=== PATIENT | female | born 2000 | race Caucasian/White ===

== ENCOUNTER → 2021-11-19 12:57 | Outpatient (BNVA) | payer OTHER, SELFPAY | PROVIDERS: PCP Pediatrics; Referring Provider Pediatrics; Visit Provider Student in an Organized Health Care Education/Training Program | DX: M79.661 Pain in right lower leg (principal); M79.662 Pain in left lower leg; M84.361S Stress fracture, right tibia, sequela; M84.362S Stress fracture, left tibia, sequela | CPT/HCPCS: 99213 ==

== ENCOUNTER 2024-03-19 11:01 | Emergency (ER) | payer MEDICAID, SELFPAY ==
[2024-03-19 11:11] VITALS: BP 104/72; PULSE 87; RESP 12; TEMP 36.4; O2SAT 97
--- NOTE | 2024-03-19 11:30 | ED.GENADUL_ITS ---
Discharge Plan Disposition Patient Disposition: Home Condition: Stable Discharge Details Clinical Impression: Corneal irritation of right eye Primary Care Provider: Ismael Chung ED Provider: Day Morgan Home Meds and New Rx's Prescriptions: No Action No Known Home Meds Discharge Instructions Instructions: How to Use Eye Drops and Eye Ointment ED Additional Instructions: No evidence for corneal abrasion or foreign body today in the eye. Please use the eye ointment as directed 3 times a day while awake for the next 3 to 5 days. If persistent irritation please follow-up with your normal eye doctor. Please take Tylenol or Ibuprofen with food every 4-6 hours as needed for pain and swelling. Follow up with primary care provider in 3-5 days. Return to ED sooner if any worsening or concerns. Referrals: [facility] [Outside] - 3 days Ismael Chung [Primary Care Provider] - 3 days Discharge Data Discharge Date/Time-TO BE ENTERED AT DEPARTURE: 03/19/24 11:51 HPI General Mode of arrival: ambulatory . Date/Time Provider Initiated Documentation: 03/19/24 11:14 . Limitations to Documentation: no limitations . Information obtained by: patient, RN notes reviewed and old records reviewed . HPI Narrative: 23-year-old female presents to the ER with a chief complaint of foreign body sensation and irritation to her right eye which began yesterday after taking out a contact lens. She reports that she tried to rinse it out with little to no relief. Increase steering. No purulent discharge noted. No other associated symptoms or concerns. Related Data Home Medications ?Medication ?Instructions ?Recorded ?Confirmed Unknown [No Known Home Meds] 10/08/21 03/19/24 Allergies Allergy/AdvReac Type Severity Reaction Status Date / Time Latex, Natural Rubber AdvReac Mild rash Verified 03/19/24 11:16 General Stated Complaint: EyeProblem SUJATHA: 4 Review of Systems All systems reviewed & are unremarkable except as noted in HPI and below Eyes Eyes: Reports as per HPI and Reports irritation Exam Eyes General: appearance normal, both eyes and all related structures Visual Mcdonnell: normal visual mcdonnell by confrontation Alignment and Position: alignment normal Periorbital: periorbital findings normal Eyelids: eyelids normal Conjunctivae: conjunctival abnormality right conjunctival injection diffuse Sclera: sclerae normal Cornea: corneas normal and fluorescein used Pupils: PERRL EOM: EOM intact bilaterally Direct ophthalmoscopy: normal light reflex Course Vital Signs Vital signs: Vital Signs Temperature 36.4 C 03/19/24 11:11 Pulse 87 03/19/24 11:11 Respiratory Rate 12 03/19/24 11:11 Blood Pressure 104/72 03/19/24 11:11 Pulse Oximetry 97 03/19/24 11:11 Temperature 36.4 C 03/19/24 11:11 Temperature Source Oral 03/19/24 11:11 Pulse 87 03/19/24 11:11 Respiratory Rate 12 03/19/24 11:11 Respiratory Effort Normal, Non-Labored 03/19/24 11:13 Blood Pressure 104/72 03/19/24 11:11 Blood Pressure Position Sitting 03/19/24 11:11 Pulse Oximetry 97 03/19/24 11:11 Oxygen Delivery Method Room Air 03/19/24 11:11 Oxygen Flow Rate 0 03/19/24 11:11 Pain Level 5 03/19/24 11:11 Medical Decision Making 24-year-old female presents to the ER with a chief complaint of foreign body sensation and irritation to her right eye which began yesterday after taking out a contact lens. She reports that she tried to rinse it out with little to no relief. Increase steering. No purulent discharge noted. No other associated symptoms or concerns. No evidence of corneal abrasion, no uptake and dye no foreign body visualized on the Hurst lamp exam. Will give erythromycin ointment and have patient follow-up in 3 days if no better. Patient verbalized understanding. This text was generated using [employer] dictation system, please disregard any oddities of phrase or misspellings. Quality:SDOH Health Related Social Needs: No Data to Display PFSH All Active Problems (Updated 03/19/24 @ 11:32 by Day Morgan NP) Corneal irritation of right eye (Acute) Stress fracture, left tibia, sequela (Acute) Stress fracture, right tibia, sequela (Acute) Femoroacetabular impingement of left hip (Acute) Stress fracture, right tibia, initial encounter for fracture (Acute) Stress fracture, left tibia, initial encounter for fracture (Acute) Social History Smoking/Tobacco Use Status: Never Smoking risk assessment performed?: Yes Alcohol Intake: never Drug use: Never Substance use type: does not use Housing: house Current gender identity: female
[2024-03-19 11:49] VITALS: BP 104/72; PULSE 87; RESP 12; TEMP 36.4; O2SAT 97
[2024-03-19] MEDS: Balanced Salt Solution 15 ML BTL OP (11:49)
[2024-03-19] MEDS: Erythromycin Ophth Oint 3.5 GM TUBE OD (11:49)
== END 2024-03-19 11:51 | disposition home or self-care (01) ==
LOC: ER 11:55
PROVIDERS: Emergency Provider Registered Nurse Emergency; PCP Pediatrics
DX: H57.8A1 Foreign body sensation, right eye (principal)
CPT/HCPCS: 99283

== ENCOUNTER 2024-05-08 22:11 | Emergency (ER) | payer MEDICAID, SELFPAY ==
[2024-05-08 22:14] VITALS: BP 130/68; PULSE 68; RESP 16; TEMP 36.6; O2SAT 100
--- NOTE | 2024-05-08 22:23 | W.ED.GENAD ---
Discharge Plan Disposition Patient Disposition: Home Condition: Good Discharge Details Clinical Impression: Diarrhea, Abdominal pain Primary Care Provider: Ismael Chung ED Provider: Cam Dawn Home Meds and New Rx's Prescriptions: No Action No Known Home Meds Discharge Instructions Instructions: Abdominal Pain, Adult ED, Diarrhea, Adult ED Additional Instructions: At this time your laboratory workup is returned very reassuring. Your electrolytes are normal, your renal function and pancreas function is normal. There is no evidence of infection in your urine or other significant abnormalities. Your CAT scan is reassuring, with no signs of life-threatening etiology. Please take Tylenol and Motrin as needed for pain. Please return with a stool samples for further testing if your diarrhea continues. If you notice any worsening of your symptoms, or any new symptoms such as vomiting, diarrhea, fever, chills, shortness of breath, chest pain, numbness, weakness, or fainting , please return immediately to the emergency department for reevaluation. Please follow up with your primary care provider as soon as possible for reassessment and reevaluation. As always, it was a pleasure participating in your medical care today. Stand Alone Forms: Work Release Referrals: Ismael Chung [Primary Care Provider] - [facility] General Date/Time Provider Initiated Documentation: 05/08/24 22:12. HPI Narrative: 24-year-old female with a past medical history of 2 vaginal deliveries, who is currently 3 months who did have a tubal ligation at that time, presents today for abdominal pain. Patient states that 1 week ago she developed mild back achiness which she thought was from lifting up her child frequently. Over the next day or 2 it transition to abdominal cramps which felt like a normal menstrual period, and then this transitioned over the last 2 days to diarrhea which is described as slightly loose, no blood. She has also had development of right upper quadrant epigastric discomfort which she describes as achy. She denies any vomiting but does admit to nausea. She denies any fever or chills. No burning with urination. No chest pain or shortness of breath. No other prior abdominal surgeries. She denies any recent foreign travel, antibiotic use, or drinking from streams or burr. No other sick contacts, no boil water notices for where she lives. No other complaints at this time. Pain is made worse in her abdomen with walking and moving. It is improved by nothing. She did take Midol, and Imodium without significant improvement. No other complaints at this time. Related Data Home Medications ?Medication ?Instructions ?Recorded ?Confirmed Unknown [No Known Home Meds] 10/08/21 05/08/24 Allergies Allergy/AdvReac Type Severity Reaction Status Date / Time Latex, Natural Rubber AdvReac Mild rash Verified 05/08/24 22:30 General Stated Complaint: Abd Prob SUJATHA: 3 Review of Systems All systems reviewed & are unremarkable except as noted in HPI and below Exam Narrative Exam Narrative: 1.Const: Well-nourished, Well-developed, appearing stated age 2.Eyes: PERRL, no conjunctival injection, and symmetrical lids. 3.ENT: Atraumatic external nose and ears. Dry MM. Neck: Symmetric, trachea midline, No thyromegaly. 4.CVS: +S1/S2, Peripheral pulses 2+ and equal in all extremities. Brisk capillary refill in all extremities. 5.RESP: Unlabored respiratory effort. Clear to auscultation bilaterally. No wheezes rales or rhonchi 6.GI: Soft, nondistended. Mild tenderness in the right upper quadrant, negative Blackman sign. Minimal left upper quadrant tenderness. No guarding or rebound. No pain to McBurney's point, mild achiness on palpation of the lower abdomen, but no guarding or rebound otherwise. 7.MSK: Normocephalic/Atraumatic, Extremities w/o deformity or ttp No cyanosis or clubbing, Normal movement of all extremities 8.Skin: Warm, Dry. No rashes or lesions. 9.Neuro: artificial stone applicator II-XII grossly intact. Sensation grossly intact, no focal neurologic deficits. 10.Psych: (AAO) x3. Appropriate mood and affect Course Vital Signs Vital signs: Vital Signs Temperature 36.6 C 05/08/24 22:14 Pulse 68 05/08/24 22:14 Respiratory Rate 16 05/08/24 22:14 Blood Pressure 130/68 05/08/24 22:14 Pulse Oximetry 100 05/08/24 22:14 Temperature 36.6 C 05/08/24 22:14 Temperature Source Temporal Artery Scan 05/08/24 22:14 Pulse 68 05/08/24 22:14 Respiratory Rate 16 05/08/24 22:14 Blood Pressure 130/68 05/08/24 22:14 Pulse Oximetry 100 05/08/24 22:14 Oxygen Delivery Method Room Air 05/08/24 22:14 Oxygen Flow Rate 0 05/08/24 22:14 Pain Level 7 05/08/24 22:14 Medical Decision Making 24-year-old female with a past medical history of 2 vaginal deliveries, who is currently 3 months who did have a tubal ligation at that time, presents today for abdominal pain. Patient states that 1 week ago she developed mild back achiness which she thought was from lifting up her child frequently. Over the next day or 2 it transition to abdominal cramps which felt like a normal menstrual period, and then this transitioned over the last 2 days to diarrhea which is described as slightly loose, no blood. She has also had development of right upper quadrant epigastric discomfort which she describes as achy. She denies any vomiting but does admit to nausea. She denies any fever or chills. No burning with urination. No chest pain or shortness of breath. No other prior abdominal surgeries. She denies any recent foreign travel, antibiotic use, or drinking from streams or burr. No other sick contacts, no boil water notices for where she lives. No other complaints at this time. Pain is made worse in her abdomen with walking and moving. It is improved by nothing. She did take Midol, and Imodium without significant improvement. No other complaints at this time. Exam demonstrates mild tenderness in the right upper quadrant, and achiness throughout. No guarding or rebound. Symptoms appear inconsistent with an acute surgical abdomen. Differential does include cholecystitis, cholelithiasis, less likely pancreatitis. Urolithiasis or UTI certainly on the differential as well. Less likely is postoperative complication from surgeries. Diarrhea may be infectious, particularly viral. Enteritis may be on the differential, however C. difficile and infectious etiology is certainly less likely given her lack of concerning red flags in history. That being said we will check for these infectious components. We will monitor closely and reassess, get a CT scan of the abdomen for further assessment, perform laboratory workup. Will hold on IV fluids as she has no tachycardia or shock. However we will encourage oral fluids. We remain in current lockdown for IV fluid use secondary to national shortage. No indication for emergent fluid resuscitation through the IV at this time though. 11:45 PM Laboratory workup has returned notably unremarkable, no white count, bandemia, left shift. Electrolytes normal, lipase normal, urinalysis shows no evidence of infection or blood. On reassessment patient states that she feels notably improved. Symptoms inconsistent with pancreatitis or colitis. CT scan shows evidence of nonspecific gastro mural thickening, mildly thickened anterior bladder wall, but no evidence of UTI. There is a complex left adnexal cyst, no additional acute process otherwise. There is a subcentimeter hypodensity in the liver, I did discuss this with the patient at all. Symptoms and clinical history inconsistent with metastases or metastatic process. Patient has not had any more bowel movements here, and so we have not been able to do perform testing on stool studies. Will give stool lab order form for her for home use if she does have a return of her diarrhea. Otherwise patient looks well. Repeat exam shows no evidence of acute life-threatening surgical abdominal process. Patient stable for discharge. Suspect mild gastroenteritis, mild gastritis, recommend continued fluids at home, Tylenol as needed, and close follow-up with PCP. Discussed red flags which to return. I have extensively reviewed the treatment plan and discharge instructions with the patient. I have addressed all patient concerns at this time. The patient was made aware of what symptoms to monitor for that would warrant a return to the emergency department. Discussed the plan with the patient, they demonstrate verbal understanding and agreement with our assessment and plan at this time. The documentation in this chart was dictated using [employer] dictation software. Please excuse any dictation errors. FINDINGS: Lungs: Lung bases are clear. Liver: Subcentimeter hypodensity in the caudate lobe is too small to characterize but likely benign in the absence of known malignancy, correlate clinically. Liver is not enlarged. Gallbladder and biliary ducts: Unremarkable. No calcified stones. No ductal dilation. Pancreas: Unremarkable. No ductal dilation. Spleen: Unremarkable. No splenomegaly. Adrenal glands: Normal. No mass. Kidneys and ureters: Symmetric renal enhancement without mass. No hydronephrosis. Ureters are normal in course and caliber. Stomach and bowel: Stomach decompressed with mild nonspecific gastric mural thickening. No evidence of bowel obstruction. No definite focal bowel wall thickening allowing for degree of bowel distension. Appendix: Within normal limits. Intraperitoneal space: Trace free fluid in the pelvic cul-de-sac is likely physiologic. No free air. Vasculature: No abdominal aortic aneurysm or evidence of dissection Lymph nodes: No pathologically enlarged lymph nodes. Urinary bladder: There is mild thickening of the anterior bladder wall measuring 5-6 mm (sagittal series 6, image 36). Reproductive: Complex, crenulated appearing peripherally enhancing 1.8 cm x 1.0 cm x 2.1 cm left adnexal cyst. Otherwise unremarkable as visualized. Bones/joints: Unremarkable. No acute fracture. Soft tissues: Trace fat containing umbilical hernia. IMPRESSION: 1. Mild nonspecific gastric mural thickening may be related to changes of incomplete distension versus acute gastritis. Correlate with history/symptoms. 2. Mild thickening of the anterior bladder wall. Recommend correlation with urinalysis. 3. Complex 2.1 cm left adnexal cyst. CT appearance most consistent with corpus luteum. 4. Additional nonacute findings as discussed. Thank you for allowing us to participate in the care of your patient. Dictated and Authenticated by: Vivek Santa MD 05/09/2024 12:03 AM Eastern Time ([place] & [place]) Quality:SDOH Health Related Social Needs: No Data to Display PFSH All Active Problems (Updated 05/09/24 @ 00:15 by Cam Dawn DO) Abdominal pain (Acute) Diarrhea (Acute) Stress fracture, left tibia, sequela (Acute) Stress fracture, right tibia, sequela (Acute) Femoroacetabular impingement of left hip (Acute) Stress fracture, right tibia, initial encounter for fracture (Acute) Stress fracture, left tibia, initial encounter for fracture (Acute) Social History Smoking/Tobacco Use Status: Never Smoking risk assessment performed?: Yes Alcohol Intake: never Drug use: Never Substance use type: does not use Housing: house Current gender identity: female
[2024-05-08] MEDS: Ondansetron 4 MG/2 ML VIAL IVP (22:31)
[2024-05-08] MEDS: Acetaminophen 500 MG TAB 1000 MG PO (22:31)
[2024-05-08] MEDS: Ketorolac 15 MG/ML VIAL IVP (22:31)
[2024-05-08 22:33] LABS: Abs Immature Grans 0.03 10^3/uL (0.0-0.06); Absolute Basophil Count 0.04 10^3/uL (0.0-0.2); Absolute Eosinophil Count 0.27 10^3/uL (0.0-0.7); Absolute Lymphocyte Count 2.48 10^3/uL (1.2-3.4); Absolute Monocyte Count 0.79 10^3/uL (0.1-0.8); Absolute Neutrophil Count 6.29 10^3/uL (1.2-6.7); Basophils % 0.4 %; Eosinophils % 2.7 %; HCT 38.4 % (36.0-46.0); HGB 12.1 g/dL (11.2-15.7); Immature Grans % 0.3 %; Lymphocytes % 25.1 %; MCH 26.5 pg (27.0-33.0); MCHC 31.5 % (32.0-36.0); MCV 84 fL (80-95); MPV 9.3 fL (8.0-11.0); Neutrophils % 63.5 %; Platelet Count 262 10^3/uL (130-400); RBC 4.57 10^6/uL (3.93-5.22); RDW 14.5 % (11.7-14.6); RDW-SD 44.6 fL
[2024-05-08] MEDS: Normal Saline - Diluent 50 ML VIAL IJ (22:36)
[2024-05-08] MEDS: Omnipaque 350 MG/ML 100 ML BTL 85 ML IJ (22:37)
--- NOTE | 2024-05-08 22:46 | DI.CT_ITS ---
Exam(s) CT ABDOMEN PELVIS W EXAM: CT ABDOMEN PELVIS W CLINICAL HISTORY: diarrhea, ruq abd pain, 3 months post . TECHNIQUE: Imaging Protocol: Axial computed tomography images with coronal and sagittal reformatted images were created and reviewed CONTRAST MATERIAL: Intravenous: Omnipaque-350 85cc Oral: None COMPARISON: No exams were available for comparison FINDINGS: VISUALIZED LUNG BASES: No nodules nor pleural effusions evident. ABDOMEN: LIVER: There are no focal hepatic lesions evident. No dilated intrahepatic ducts. GALLBLADDER/BILIARY: No obvious gallbladder pathology. CBD is not dilated. PANCREAS: No evidence of pancreatic mass nor dilatation of the pancreatic duct. SPLEEN: Spleen is not enlarged. No obvious intrasplenic lesions. Splenic and portal veins are paten t. ADRENALS: There are no significant adrenal masses. KIDNEYS:No cysts evident. No solid renal masses. No calculi nor hydronephrosis.. ABDOMINAL AORTA: Abdominal aorta is not enlarged. LYMPH NODES:There is no retroperitoneal nor paraaortic adenopathy. ABDOMINAL WALL: No evidence of significant anterior abdominal wall nor inguinal hernia. GI: There is no evidence of bowel obstruction, free air, nor abscess. PELVIS: GI: No evidence of appendicitis.No evidence of sigmoid diverticulitis.No obvious colitis pattern. LYMPH NODES: There is no intrapelvic nor inguinal adenopathy. REPRODUCTIVE: Uterus size age-appropriate. No concerning adnexal masses. Referring enhancing corpus luteal cyst noted in left ovary there is tiny amount of fluid in the cul-de-sac probably female phys iologic. URINARY BLADDER: Is mild thickening of the anterior wall the urinary bladder. OSSEOUS: No fractures and no significant osseous lesions. IMPRESSION: 1. Mild thickening of the anterior wall the urinary bladder. Correlation with any clinical signs of cystitis recommended. 2. No CT evidence of pyelonephritis. No obstruction of the urinary tracts. 3. Corpus luteal cyst noted in the left ovary. 4. Tiny amount of free fluid in the pelvis which is probably female physiologic. RADIATION DOSE DELIVERED: 601.21mGy.cm Total DLP DATA REPOSITORY: All CT scans at this facility are submitted to the National Radiology Data Registry (NRDR) Dose Index Registry (DIR) with the [employer] (ACR). RADIATION OPTIMIZATION: All CT scans at this facility use at least one of these dose optimization te chniques: automated exposure control; mA and/or kV adjustment per patient size (includes targeted exa ms where dose is matched to clinical indication); or iterative reconstruction.
[2024-05-08 22:48] LABS: ALT 23 U/L (14-59); AST 16 U/L (15-37); Albumin 3.6 g/dL (3.4-5.0); Alkaline Phosphatase 71 U/L (46-116); Anion Gap 8.5 mmol/L (3-11); BUN 13 mg/dL (7-18); Bilirubin, Total 0.25 mg/dL (0.2-1.0); CO2 26.5 mmol/L (21.0-32.0); CREATININE 0.9 mg/dL (0.55-1.02); Chloride 106 mmol/L (98-107); Estimated GFR 92.12 (mL/min/1.73m2); Glucose 104 mg/dL (74-106); Lipase 48 U/L (16-77); Potassium 3.5 mmol/L (3.5-5.1); Sodium 141 mmol/L (136-145); Total Protein 7.8 g/dL (6.4-8.2)
[2024-05-08 22:52] LABS: Calcium 8.8 mg/dL (8.5-10.1)
[2024-05-08 23:10] LABS: Bilirubin Negative (Negative); Blood Negative (Negative); Clarity Clear (Clear); Glucose Negative (Negative); Ketones Negative (Negative); Leukocyte Esterase Negative (Negative); Nitrite Negative (Negative); Urobilinogen 0.2 mg/dL (Up to 0.2); pH 6.5 (5-8)
--- NOTE | 2024-05-09 00:03 | DI.VRAD_ITS ---
PROCEDURE INFORMATION: Exam: CT Abdomen And Pelvis With Contrast Exam date and time: 05/08/2024 10:35 PM Age: 24 years old Clinical indication: Other: Diarrhea, ruq abd pain, 3 months post TECHNIQUE: Imaging protocol: Computed tomography of the abdomen and pelvis with contrast. Contrast material: OMNIPAQUE 350; Contrast volume: 85 ml; Contrast route: INTRAVENOUS (IV); COMPARISON: No relevant prior studies available. FINDINGS: Lungs: Lung bases are clear. Liver: Subcentimeter hypodensity in the caudate lobe is too small to characterize but likely benign in the absence of known malignancy, correlate clinically. Liver is not enlarged. Gallbladder and biliary ducts: Unremarkable. No calcified stones. No ductal dilation. Pancreas: Unremarkable. No ductal dilation. Spleen: Unremarkable. No splenomegaly. Adrenal glands: Normal. No mass. Kidneys and ureters: Symmetric renal enhancement without mass. No hydronephrosis. Ureters are normal in course and caliber. Stomach and bowel: Stomach decompressed with mild nonspecific gastric mural thickening. No evidence of bowel obstruction. No definite focal bowel wall thickening allowing for degree of bowel distension. Appendix: Within normal limits. Intraperitoneal space: Trace free fluid in the pelvic cul-de-sac is likely physiologic. No free air. Vasculature: No abdominal aortic aneurysm or evidence of dissection. Lymph nodes: No pathologically enlarged lymph nodes. Urinary bladder: There is mild thickening of the anterior bladder wall measuring 5-6 mm (sagittal series 6, image 36). Reproductive: Complex, crenulated appearing peripherally enhancing 1.8 cm x 1.0 cm x 2.1 cm left adnexal cyst. Otherwise unremarkable as visualized. Bones/joints: Unremarkable. No acute fracture. Soft tissues: Trace fat containing umbilical hernia. IMPRESSION: 1. Mild nonspecific gastric mural thickening may be related to changes of incomplete distension versus acute gastritis. Correlate with history/symptoms. 2. Mild thickening of the anterior bladder wall. Recommend correlation with urinalysis. 3. Complex 2.1 cm left adnexal cyst. CT appearance most consistent with corpus luteum. 4. Additional nonacute findings as discussed. Dictated and Authenticated by: Vivek Santa MD. Ordering:ANTOINETTE Levy MD
[2024-05-09 00:54] VITALS: BP 112/75; PULSE 52; RESP 16; O2SAT 99
== END 2024-05-09 00:54 | disposition home or self-care (01) ==
PROVIDERS: Emergency Provider Student in an Organized Health Care Education/Training Program; PCP Pediatrics
DX: R19.7 Diarrhea, unspecified; M54.50 Low back pain, unspecified; R10.11 Right upper quadrant pain; R11.0 Nausea
CPT/HCPCS: 36415; 80053; 81025; 83690; 96374; 96375; 99285; 74177; 81003; 85025; 99283; J1885; J2405; J3490

== ENCOUNTER 2024-05-11 02:47 | Emergency (ER) | payer MEDICAID, SELFPAY ==
[2024-05-11 02:55] VITALS: BP 133/88; PULSE 68; RESP 16; TEMP 36.6; O2SAT 99
--- NOTE | 2024-05-11 03:51 | ED.GENADUL_ITS ---
Discharge Plan Disposition Patient Disposition: Home Condition: Good Discharge Details Clinical Impression: Abdominal cramping Primary Care Provider: Ismael Chung ED Provider: Iza Bradford Home Meds and New Rx's Prescriptions: New meloxicam 7.5 mg tablet 7.5 mg PO BID PRNQty: 14 0RF Discharge Instructions Instructions: Abdominal Pain, Adult ED Additional Instructions: Take meloxicam up to every 12 hours as needed for pain/cramping. You can also take tylenol over the counter; follow the directions on the bottle. Call your primary care doctor today to schedule an appointment for within the next 72 hours to followup on your visit here. Return to the emergency department for new or worsening symptoms including fever, pain with urination, new/different/worse abdominal cramping, vomiting, heavy vaginal bleeding, or if you have any other concerns. HPI General Mode of arrival: ambulatory . Date/Time Provider Initiated Documentation: 05/11/24 03:03 . Limitations to Documentation: no limitations . Information obtained by: patient and old records reviewed (ED visit note 05/08/24) . HPI Narrative: 24yo previously healthy female presenting for diffuse abdominal cramping. Symptoms started on Wednesday, seen in this ED on Wednesday (see prior visit note for details). Pain continues today, diffuse crampy abdominal pain with assoicated nausea. No vomiting. Irregular periods since giving 3 months ago, did start menstruating today with some spotting. No heavy vaginal bleeding. No dysuria, hematuria, diarhea, constipation, bloody stool. Tried Motrin without improvement. Otherwise in her usual state of health with no fevers, chills, rash, or other concerns. Related Data Home Medications ?Medication ?Instructions ?Recorded ?Confirmed meloxicam 7.5 mg tablet 7.5 mg PO BID PRN #14 tabs 05/11/24 Previous Rx's ?Medication ?Instructions ?Recorded meloxicam 7.5 mg tablet 7.5 mg PO BID PRN #14 tabs 05/11/24 Allergies Allergy/AdvReac Type Severity Reaction Status Date / Time Latex, Natural Rubber AdvReac Mild rash Verified 05/08/24 22:30 General Stated Complaint: Abd Prob SUJATHA: 4 Review of Systems Narrative: see HPI Exam Narrative Exam Narrative: General: Alert, well appearing, well nourished, in no acute distress. Head: Normocephalic, atraumatic Neck: Trachea midline, ?Neck supple. ENT: ?MMM.? No oropharygeal lesions or exudate. Cardiac: ?RRR, no murmurs appreciated Resp: No respiratory distress. CTAB. Abd: ?Soft, non-distended, nontender : ?No suprapubic tenderness. No CVA tenderness. Extremities: ?No deformities.? No peripheral edema. Neurologic: GCS 15. ? Moves all extremities freely against gravity Course Vital Signs Vital signs: Vital Signs Temperature 36.6 C 05/11/24 02:55 Pulse 68 05/11/24 02:55 Respiratory Rate 16 05/11/24 02:55 Blood Pressure 133/88 05/11/24 02:55 Pulse Oximetry 99 05/11/24 02:55 Temperature 36.6 C 05/11/24 02:55 Pulse 68 05/11/24 02:55 Respiratory Rate 16 05/11/24 02:55 Respiratory Effort Normal 05/11/24 03:01 Blood Pressure 133/88 05/11/24 02:55 Blood Pressure Position Sitting 05/11/24 02:55 Pulse Oximetry 99 05/11/24 02:55 Oxygen Delivery Method Room Air 05/11/24 02:55 Oxygen Flow Rate 0 05/11/24 02:55 Pain Level 6 05/11/24 02:55 Medical Decision Making 24yo previously healthy female presenting for diffuse abdominal cramping. Symptoms started on Wednesday, seen in this ED on Wednesday (see prior visit note for details); at that time CBC, CMP, lipase, and UA reassuring and CT with left adenxal cyst, no other acute process. Vital signs reassuring on arrival, benign abdominal exam with no tenderness. Low suspicion for acute abdomen/surgical intraabdominal process/appendicits/bowel obstruction/ovarian torsion; would not repeat CT scan or transfer for pelvic ultrasound. Will repeat labs and UA, treat symptoms with tylenol and toradol. Offered zofran, pt declined as not currently nausated. Labs as below, CBC & CMP reassuring with no actionable abnormalities, not , UA not infected. On reassessment patient reports pain has much improved. Advised close PCP followup, prescribed short course of meloxicam. Discharged home; discharge instructions and return precautions were reviewed with patient who verbalized understanding. All questions were answered and she is in full agreement with the plan. Lab Data Lab results reviewed: Yes I reviewed the patient's lab results. Labs: Laboratory Tests Range/Units 05/11/24 05/11/24 04:10 04:14 WBC (4.4-10.8) 10^3/uL 7.01 RBC (3.93-5.22) 10^6/uL 4.41 Hgb (11.2-15.7) g/dL 11.5 Hct (36.0-46.0) % 37.4 MCV (80-95) fL 85 MCH (27.0-33.0) pg 26.1 L MCHC (32.0-36.0) % 30.7 L RDW (11.7-14.6) % 14.5 Plt Count (130-400) 10^3/uL 231 MPV (8.0-11.0) fL 9.4 Immature Gran % % 0.3 Neutrophils % % 51.9 Lymphocytes % % 33.7 Monocytes % % 8.6 Eosinophils % % 4.9 Basophils % % 0.6 Nucleated RBC % (0.0-0.3) % 0.0 Absolute Neutrophils (1.2-6.7) 10^3/uL 3.65 Absolute Lymphocytes (1.2-3.4) 10^3/uL 2.36 Absolute Monocytes (0.1-0.8) 10^3/uL 0.60 Absolute Eosinophils (0.0-0.7) 10^3/uL 0.34 Absolute Basophils (0.0-0.2) 10^3/uL 0.04 Sodium (136-145) mmol/L 142 Potassium (3.5-5.1) mmol/L 4.0 Chloride (98-107) mmol/L 108 H Carbon Dioxide (21.0-32.0) mmol/L 26.0 Anion Gap (3-11) mmol/L 8.0 BUN (7-18) mg/dL 19 H Creatinine (0.55-1.02) mg/dL 0.9 Est GFR (CKD-EPI 2020) (mL/min/1.73m2) 92.12 Glucose (74-106) mg/dL 97 Calcium (8.5-10.1) mg/dL 8.6 Total Bilirubin (0.2-1.0) mg/dL 0.23 AST (15-37) U/L 15 ALT (14-59) U/L 19 Alkaline Phosphatase (46-116) U/L 67 Total Protein (6.4-8.2) g/dL 7.2 Albumin (3.4-5.0) g/dL 3.4 Beta HCG, Quant (1-3) mIU/mL < 1 L Urine Color (Yellow) Yellow Urine Clarity (Clear) Sl Cloudy Urine pH (5-8) 6.5 Ur Specific [place] (1.005-1.025) 1.020 Urine Protein (Neg-Trace) mg/dL Negative Urine Ketones (Negative) mg/dL Negative Urine Blood (Negative) Large H Urine Nitrite (Negative) Negative Urine Bilirubin (Negative) Negative Urine Urobilinogen (Up to 0.2) mg/dL 0.2 Ur Leukocyte Esterase (Negative) Trace H Urine RBC (0-2) HPF 10-20 H Urine WBC (0-5) HPF 3-5 Ur Epithelial Cells (Negative) HPF Few Urine Crystals (Negative) HPF Negative Urine Bacteria (Negative) HPF Few Urine Casts (Negative) LPF Negative Urine Mucus (Negative) Negative Ur Culture Indicated? No Urine Glucose (Negative) mg/dL Negative Quality:SDOH Health Related Social Needs: No Data to Display PFSH All Active Problems (Updated 05/11/24 @ 05:28 by Iza Bradford MD) Abdominal cramping (Acute) Abdominal pain (Acute) Diarrhea (Acute) Stress fracture, left tibia, sequela (Acute) Stress fracture, right tibia, sequela (Acute) Femoroacetabular impingement of left hip (Acute) Stress fracture, right tibia, initial encounter for fracture (Acute) Stress fracture, left tibia, initial encounter for fracture (Acute) Social History Smoking/Tobacco Use Status: Never Smoking risk assessment performed?: Yes Alcohol Intake: never Drug use: Never Substance use type: does not use Housing: house Current gender identity: female
[2024-05-11] MEDS: Ketorolac 15 MG/ML VIAL IVP (04:16)
[2024-05-11] MEDS: ACETAMINOPHEN 1,000 MG/100 ML BAG 400 MG IVPB (04:16)
[2024-05-11 04:21] LABS: Abs Immature Grans 0.02 10^3/uL (0.0-0.06); Absolute Basophil Count 0.04 10^3/uL (0.0-0.2); Absolute Eosinophil Count 0.34 10^3/uL (0.0-0.7); Absolute Lymphocyte Count 2.36 10^3/uL (1.2-3.4); Absolute Neutrophil Count 3.65 10^3/uL (1.2-6.7); Basophils % 0.6 %; Eosinophils % 4.9 %; HCT 37.4 % (36.0-46.0); HGB 11.5 g/dL (11.2-15.7); Immature Grans % 0.3 %; Lymphocytes % 33.7 %; MCH 26.1 pg (27.0-33.0); MCHC 30.7 % (32.0-36.0); MCV 85 fL (80-95); MPV 9.4 fL (8.0-11.0); Monocytes % 8.6 %; Neutrophils % 51.9 %; Platelet Count 231 10^3/uL (130-400); RBC 4.41 10^6/uL (3.93-5.22); RDW 14.5 % (11.7-14.6); RDW-SD 45.2 fL; WBC 7.01 10^3/uL (4.4-10.8)
[2024-05-11 04:22] LABS: Bilirubin Negative (Negative); Blood Large (Negative); Glucose Negative (Negative); Ketones Negative (Negative); Leukocyte Esterase Trace (Negative); Nitrite Negative (Negative); Urobilinogen 0.2 mg/dL (Up to 0.2); pH 6.5 (5-8)
[2024-05-11 04:25] LABS: Clarity Sl Cloudy (Clear)
[2024-05-11 04:29] LABS: Bacteria Few HPF (Negative); C & S Indicated? No; Casts Negative LPF (Negative); Crystals Negative HPF (Negative); Epithelial Cells Few HPF (Negative); Mucus Negative (Negative)
[2024-05-11 04:38] LABS: ALT 19 U/L (14-59); AST 15 U/L (15-37); Albumin 3.4 g/dL (3.4-5.0); Alkaline Phosphatase 67 U/L (46-116); BUN 19 mg/dL (7-18); Bilirubin, Total 0.23 mg/dL (0.2-1.0); CREATININE 0.9 mg/dL (0.55-1.02); Calcium 8.6 mg/dL (8.5-10.1); Chloride 108 mmol/L (98-107); Estimated GFR 92.12 (mL/min/1.73m2); Glucose 97 mg/dL (74-106); Sodium 142 mmol/L (136-145); Total Protein 7.2 g/dL (6.4-8.2)
[2024-05-11 04:39] LABS: HCG Quant, Pregnancy < 1 mIU/mL (1-3)
[2024-05-11 05:39] VITALS: BP 137/70; PULSE 72; RESP 16; O2SAT 99
== END 2024-05-11 05:40 | disposition home or self-care (01) ==
PROVIDERS: Emergency Provider Student in an Organized Health Care Education/Training Program; PCP Pediatrics
DX: R11.0 Nausea; R10.9 Unspecified abdominal pain
CPT/HCPCS: 36415; 80053; 96365; 96374; 99284; 81003; 81015; 84702; 85025; 99283; J0131; J1885

== ENCOUNTER 2024-12-28 15:31 | Outpatient (REF) | payer MEDICAID, SELFPAY ==
[2024-12-28 15:43] LABS: HCT 40.5 % (36.0-46.0); HGB 12.8 g/dL (11.2-15.7); MCH 27.2 pg (27.0-33.0); MCHC 31.6 % (32.0-36.0); MCV 86 fL (80-95); MPV 11.9 fL (8.0-11.0); Platelet Count 129 10^3/uL (130-400); RDW 13.7 % (11.7-14.6); RDW-SD 42.9 fL; WBC 10.69 10^3/uL (4.4-10.8)
[2024-12-28 16:15] LABS: Absolute Lymphocyte Count 6.63 10^3/uL (1.2-3.4); Absolute Monocyte Count 1.07 10^3/uL (0.1-0.8); Absolute Neutrophil Count 2.99 10^3/uL (1.2-6.7); Atypical Lymphocytes % 4 %; Diff Comment Manual Differential; RBC Morphology Normal
[2024-12-28 17:48] LABS: Anion Gap 5.9 mmol/L (3-11); BUN 12 mg/dL (7-18); CO2 30.1 mmol/L (21.0-32.0); CREATININE 0.8 mg/dL (0.55-1.02); Calcium 8.8 mg/dL (8.5-10.1); Chloride 103 mmol/L (98-107); Estimated GFR 106.11 (mL/min/1.73m2); Glucose 92 mg/dL (74-106); Sodium 139 mmol/L (136-145)
[2024-12-29 10:03] LABS: Lyme Ab w Rflx to Lyme Confirm Negative (Negative)
== END 2024-12-28 15:32 | disposition home or self-care (01) ==
LOC: LBN 15:31
PROVIDERS: Visit Provider Physician Assistant Medical
DX: R52 Pain, unspecified (principal); R53.83 Other fatigue
CPT/HCPCS: 80048; 84443; 85025; 86618